=== PATIENT | female | born 1990 | race Caucasian/White ===

== ENCOUNTER 2016-10-26 10:57 | Emergency (ER) | payer OTHER ==
--- NOTE | 2016-10-26 12:10 | ED ---
General Adult HPI - General Chief complaint: Abdominal Pain Stated complaint: Cramping/12 wks Time Seen by Provider: 10/26/16 11:10 Source: patient, RN notes reviewed Mode of arrival: ambulatory Limitations: no limitations - History of Present Illness Initial comments: This is a 26-year-old female who presents to the emergency department stating she is 12 weeks . Patient states she's had no follow-up with [facility]. Patient states she comes in today because she is having some lower abdominal cramping. Patient denies any vaginal bleeding. Patient denies any dysuria hematuria or urinary frequency. Patient states the cramping sometimes is pretty significant. Patient states currently is not that bad. Patient denies any nausea vomiting or diarrhea. Patient states she's been 5 times and has 3 children. Patient denies any fever or chills. Patient denies any back pain. Patient denies any upper abdominal pain. Patient denies any difficulty breathing or shortness of breath. - Related Data Home Medications Medication Instructions Recorded Confirmed No Known Home Medications [No 10/26/16 10/26/16 Known Home Medications] Allergies Allergy/AdvReac Type Severity Reaction Status Date / Time codeine Allergy Unknown Verified 10/26/16 12:00 Childhood Penicillins Allergy Unknown Verified 10/26/16 12:00 Childhood Review of Systems ROS Statement: Those systems with pertinent positive or pertinent negative responses have been documented in the HPI. ROS Other: All systems not noted in ROS Statement are negative. Past Medical History Past Medical History: No Reported History History of Any Multi-Drug Resistant Organisms: None Reported Additional Past Surgical History / Comment(s): cervical ca Past Psychological History: Depression Smoking Status: Current every day smoker Past Alcohol Use History: None Reported Past Drug Use History: None Reported General Exam - General Exam Comments Initial Comments: GENERAL: Patient is well-developed and well-nourished. Patient is nontoxic and well- hydrated and is in no acute distress. Patient was playing on her phone throughout my interview ENT: Neck is soft and supple. No significant lymphadenopathy is noted. Oropharynx is clear. Moist mucous membranes. Neck has full range of motion without eliciting any pain. EYES: The sclera were anicteric and conjunctiva were pink and moist. Extraocular movements were intact and pupils were equal round and reactive to light. Eyelids were unremarkable. PULMONARY: Unlabored respirations. Good breath sounds bilaterally. No audible rales rhonchi or wheezing was noted. CARDIOVASCULAR: There is a regular rate and rhythm without any murmurs gallops or rubs. ABDOMEN: Soft and nontender with normal bowel sounds. No palpable organomegaly was noted. There is no palpable pulsatile mass. SKIN: Skin is clear with no lesions or rashes and otherwise unremarkable. NEUROLOGIC: Patient is alert and oriented x3. Cranial nerves II through XII are grossly intact. Motor and sensory are also intact. Normal speech, volume and content. Symmetrical smile. MUSCULOSKELETAL: Normal extremities with adequate strength and full range of motion. LYMPHATICS: No significant lymphadenopathy is noted PSYCHIATRIC: Normal psychiatric evaluation. Limitations: no limitations Course Vital Signs 10/26/16 10/26/16 11:07 13:53 Temperature 98.3 F 98.8 F Pulse Rate 72 78 Respiratory 18 16 Rate Blood Pressure 98/53 107/58 O2 Sat by Pulse 100 97 Oximetry Medical Decision Making - Medical Decision Making Ultrasound showed a viable 13 week . She states she's following up with her OB on morning. - Lab Data Lab Results 10/26/16 10/26/16 Range/Units 12:18 12:25 Urine Color Yellow Urine Appearance Cloudy H (Clear) Urine pH 7.0 (5.0-8.0) Ur Specific [place] 1.020 (1.001-1.035) Urine Protein Trace H (Negative) Urine Glucose (UA) Negative (Negative) Urine Ketones 4+ H (Negative) Urine Blood Negative (Negative) Urine Nitrate Negative (Negative) Urine Bilirubin Negative (Negative) Urine Urobilinogen 3.0 (<2.0) mg/dL Ur Leukocyte Esterase Moderate H (Negative) Urine RBC 3 (0-5) /hpf Urine WBC 8 H (0-5) /hpf Ur Squamous Epith Cells 8 H (0-4) /hpf Urine Mucus Few H (None) /hpf Trichomonas Ag (Rapid) Negative (Negative) Disposition Clinical Impression: Intrauterine Disposition: HOME SELF-CARE Condition: Good Instructions: (ED) Additional Instructions: Patient should follow-up with her [facility] on . Return to the emergency department if there are any new or worsening symptoms Referrals: Daron Mackay DO [Primary Care Provider] - 1-2 days Time of Disposition: 13:55
[2016-10-26 12:28] LABS: Appearance,Urine Cloudy (Clear); Bilirubin,Urine Negative (Negative); Glucose,Urine (UA) Negative (Negative); Ketones,Urine 4+ (Negative); Leukocyte Esterase,Urine Moderate (Negative); Mucus,Urine Few /hpf; Nitrite,Urine Negative (Negative); Particle Count 12585; Protein,Urine Trace (Negative); RBC,Urine 3 /hpf (0-5); Squamous Epithelial Cell,Urine 8 /hpf (0-4); UA Billing (MACRO vs. MICRO) MICRO; WBC,Urine 8 /hpf (0-5)
--- NOTE | 2016-10-26 13:30 | US ---
EXAMINATION TYPE: US OB <= 14 wk fetus DATE OF EXAM: 10/26/2016 1:13 PM COMPARISON: NONE CLINICAL HISTORY: Low abdominal pain. EXAM PERFORMED: OB <14 weeks EXAM MEASUREMENTS: GESTATIONAL AGE / DATING Physician Established: Not established Dates by LMP: (13 weeks/3 days) EDC: 04/30/17 Dates by First Scan: No previous Dates by Current Scan (13 weeks/6 days) EDC: 04/27/2017 MATERNAL ANATOMY Uterus: 13.2 x 9.7 x 8.6 cm Right Ovary: 4.0 x 2.9 x 2.5 cm Left Ovary: 2.8 x 2.1 x 1.8 cm Post CDS / Adnexa: wnl Presence of free fluid: no Presence of corpus luteal cyst: right side, 1.6 x 1.6 x 1.3 cm Presence of subchorionic bleed: no GESTATION / SURVEY CRL: 7.2 cm (13 weeks/3 days) Heart Rate: 144 bpm Rhythm: normal IUP: Viable IUP Date of LMP: IMPRESSION: viable 13+ week IUP, Right sided cyst
[2016-10-26 13:54] VITALS: BP 107/58; PULSE 78; RESP 16; TEMP 98.8
== END 2016-10-26 14:08 | disposition home or self-care (01) ==
LOC: EC 10:57
DX: O26.891 Other specified pregnancy related conditions, first trimester (principal); Z3A.13 13 weeks gestation of pregnancy; R10.9 Unspecified abdominal pain; Z88.5 Allergy status to narcotic agent; Z88.0 Allergy status to penicillin; O99.331 Smoking (tobacco) complicating pregnancy, first trimester
CPT/HCPCS: 76801; 81001; 87491; 87591; 87808; 99284

== ENCOUNTER 2019-11-01 21:35 | Emergency (ER) | payer OTHER ==
[2019-11-01 21:46] VITALS: BP 128/63; PULSE 99; RESP 20; TEMP 97.5
[2019-11-01] MEDS ORDERED: IBUPROFEN 600 MG TAB PO STA (22:23)
[2019-11-01 22:43] LABS: Appearance,Urine Clear (Clear); Bilirubin,Urine Negative (Negative); Blood,Urine Negative (Negative); Color,Urine Yellow; Glucose,Urine (UA) Negative (Negative); Ketones,Urine Negative (Negative); Leukocyte Esterase,Urine Negative (Negative); Nitrite,Urine Negative (Negative); PH, Urine 6.5 (5.0-8.0); Protein,Urine Trace (Negative); Specific Gravity,Urine 1.024 (1.001-1.035)
--- NOTE | 2019-11-01 23:09 | ED ---
Abdominal Pain HPI - General Chief Complaint: Abdominal Pain Stated Complaint: lower abd pain Time Seen by Provider: 11/01/19 21:56 Source: patient Mode of arrival: ambulatory Limitations: no limitations - History of Present Illness Initial Comments: Patient is a 29-year-old female presenting to emergency Department with lower abdominal pain that started this morning. Patient describes the pain as all suprapubic and associated mild nausea. She denies any recent fever, vomiting, diarrhea. She does have an IUD in place for 3 years. She denies any abdominal surgeries. She's been having normal bowel or bladder movements. No urinary symptoms or vaginal discharge. She has no other complaints at this time. He has no other significant past medical history. Upon arrival to ER, vital signs are stable. - Related Data Home Medications Medication Instructions Recorded Confirmed No Known Home Medications 10/26/16 10/26/16 Allergies Allergy/AdvReac Type Severity Reaction Status Date / Time codeine Allergy Unknown Verified 11/01/19 21:46 Childhood Penicillins Allergy Unknown Verified 11/01/19 21:46 Childhood Review of Systems ROS Statement: Those systems with pertinent positive or pertinent negative responses have been documented in the HPI. ROS Other: All systems not noted in ROS Statement are negative. Past Medical History Past Medical History: No Reported History History of Any Multi-Drug Resistant Organisms: None Reported Additional Past Surgical History / Comment(s): cervical ca Past Psychological History: Depression Smoking Status: Current every day smoker Past Alcohol Use History: None Reported Past Drug Use History: None Reported General Exam - General Exam Comments Initial Comments: GENERAL: A she looks well, in mild distress holding suprapubic area. HEAD: Atraumatic, normocephalic. EYES: Pupils equal round and reactive to light, extraocular movements intact, sclera anicteric, conjunctiva are normal. ENT: TMs normal, nares patent, oropharynx clear without exudates. Moist mucous membranes. NECK: Normal range of motion, supple without lymphadenopathy or JVD. LUNGS: Breath sounds clear to auscultation bilaterally and equal. No wheezes rales or rhonchi. HEART: Regular rate and rhythm without murmurs, rubs or gallops. ABDOMEN: Tender to palpation in the suprapubic and right and left lower quadrant. Soft, normoactive bowel sounds. No guarding, no rebound. No masses appreciated. EXTREMITIES: Normal range of motion, no pitting or edema. No clubbing or cyanosis. NEUROLOGICAL: Normal speech, normal gait. PSYCH: Normal mood, normal affect. SKIN: Warm, Dry, normal turgor, no rashes or lesions noted. Limitations: no limitations External exam: Present: normal external exam Speculum exam: Present: normal speculum exam. Absent: vaginal discharge, cervical discharge, vaginal bleeding, foreign body By manual exam: Present: normal by manual exam Course Vital Signs 11/01/19 21:44 Temperature 97.5 F L Pulse Rate 99 Respiratory 20 Rate Blood Pressure 128/63 O2 Sat by Pulse 97 Oximetry Medical Decision Making - Medical Decision Making Patient is a 29-year-old female presenting with suprapubic tenderness sister this morning. No fever, nausea, vomiting, diarrhea. Patient does have an IUD in place. Urine is normal, she is not . Ultrasound is normal, no signs of ovarian torsion or other abnormalities. IUD looks to be in place. Discussed these findings with the patient. Patient was given Motrin reports improvement in her symptoms. Patient will follow-up with [facility] . Patient is in agreement with this plan of care. Return parameters were discussed with the patient she verbalized understanding. - Lab Data Lab Results 11/01/19 11/01/19 11/01/19 Range/Units 22:27 22:27 22:48 Urine Color Yellow Urine Appearance Clear (Clear) Urine pH 6.5 (5.0-8.0) Ur Specific [place] 1.024 (1.001-1.035) Urine Protein Trace H (Negative) Urine Glucose (UA) Negative (Negative) Urine Ketones Negative (Negative) Urine Blood Negative (Negative) Urine Nitrite Negative (Negative) Urine Bilirubin Negative (Negative) Urine Urobilinogen 3.0 (<2.0) mg/dL Ur Leukocyte Esterase Negative (Negative) Urine HCG, Qual Not Detected (Not Detectd) Trichomonas Ag (Rapid) Negative (Negative) Disposition Clinical Impression: Suprapubic abdominal pain Disposition: HOME SELF-CARE Condition: Stable Instructions (If sedation given, give patient instructions): Abdominal Pain (ED) Additional Instructions: Please return to the Emergency Department if symptoms worsen or any other concerns. With [facility] as discussed. Continue with Motrin as needed for discomfort. Is patient prescribed a controlled substance at d/c from ED?: No Referrals: Daron Mackay DO [Primary Care Provider] - 1-2 days
--- NOTE | 2019-11-01 23:45 | US ---
EXAMINATION TYPE: US transvaginal DATE OF EXAM: 11/01/2019 COMPARISON: US CLINICAL HISTORY: Suprapubic severe pain. Suprapubic pain x 1 day. Hx cervical cancer and biopsy on c ervix. . Patient has IUD in place. TECHNIQUE: Transvaginal (TV). Date of LMP: Unknown EXAM MEASUREMENTS: Uterus: 8.8 x 5.4 x 3.8 cm Endometrial Stripe: 0.48 cm Right Ovary: 3.1 x 2.0 x 1.9 cm Left Ovary: 3.3 x 2.8 x 2.5 cm 1. Uterus: Anteverted IUD appears to be within the upper endometrium. 2. Endometrium: Appears to be wnl. 3. Right Ovary: Multiple subcentimeter anechoic areas seen. 4. Left Ovary: Multiple subcentimeter anechoic areas seen. Spectral, color and waveform doppler imaging shows arterial and venous flow within the left ovary. Arterial waveform is seen in the right ovary. Limited venous waveform. Unable to definitely demonstra te venous waveform. 5. Bilateral Adnexa: Appear to be wnl 6. Posterior cul-de-sac: Fluid is seen. IMPRESSION: No evidence of ovarian torsion. IUD is in good position in the uterine fundus. Normal uterus and endo metrium. No adnexal mass. There is small amount of free fluid in the cul-de-sac that could be physiol ogic. No evidence of ovarian torsion.
[2019-11-02 16:37] LABS: C. trachomatis,PCR Negative (Neg,Equiv); Chlamydia trachomatis Source Cervix
[2019-11-02 16:54] LABS: N. gonorrhoeae,PCR Negative (Neg,Equiv); Neisseria Source Cervix
== END 2019-11-02 00:03 | disposition home or self-care (01) ==
LOC: EC 21:35
DX: R10.30 Lower abdominal pain, unspecified (principal); R11.0 Nausea; F17.200 Nicotine dependence, unspecified, uncomplicated; Z88.0 Allergy status to penicillin; Z88.5 Allergy status to narcotic agent; Z97.5 Presence of (intrauterine) contraceptive device; Z85.41 Personal history of malignant neoplasm of cervix uteri; Z98.890 Other specified postprocedural states
CPT/HCPCS: 76830; 81003; 81025; 87070; 87491; 87591; 87808; 93975; 99284

== ENCOUNTER → 2021-01-26 | Outpatient (CLI) | payer OTHER ==
--- NOTE | 2021-01-26 16:18 | US ---
EXAMINATION TYPE: Ultrasound OB the single brachial = 14 week fetus DATE OF EXAM: 01/26/2021 3:39 PM COMPARISON: NONE CLINICAL HISTORY: 30-year-old female [id number] Confirm Date; ; Smoker EXAM PERFORMED: Transabdominal (TA) FINDINGS: EXAM MEASUREMENTS: GESTATIONAL AGE / DATING Physician Established: Not yet established Dates by LMP: (11 weeks/0 days) EDC: 08/17/2021 Dates by First Scan: No previous. Dates by Current Scan for: (12 weeks/4 days) EDC: 08/06/2021 MATERNAL ANATOMY Uterus: 11.7 x 8.6 x 7.9 cm Right Ovary: 3.4 x 1.9 x 1.9cm Left Ovary: 2.6 x 2.0 x 1.5cm Post CDS / Adnexa: wnl Presence of free fluid: no Presence of corpus luteal cyst: Not seen; placenta noted Presence of subchorionic bleed: no GESTATION / SURVEY CRL: 5.9cm (12 weeks/4 days) Yolk Sac (normal less than 6mm): not seen Heart Rate: 169 bpm, upper limits of normal Rhythm: Normal IUP: Single live IUP Nuchal Translucency 10-14wks (normal less than 3mm): 1.4mm Age Appropriate Anatomy Limbs: bilateral arms and legs seen with limited detail Calvarium: visualized Date of LMP: 11/10/2020 Beta HcG (if available): NA Program Coordinator Executive Education notes: Single, live IUP, 12 weeks/4 days, EDC: 08/06/2021; HR 169bpm. IMPRESSION: 1. Single live uterine with estimated gestational age of 11 weeks 0 days bilaterally. Curre nt ultrasound biometry is larger at 12 weeks 4 days. Correlate as to accuracy of recall of LMP. 2. Complete survey recommended at 18-20 weeks. Additional short interval follow-up can be consi dered given heart rate at the upper limits of normal at 169 BPM.
== END | disposition home or self-care (01) ==
LOC: RADUSWWP 15:11
PROVIDERS: ATTEND Obstetrics & Gynecology
DX: Z36.89 Encounter for other specified antenatal screening (principal); O99.331 Smoking (tobacco) complicating pregnancy, first trimester; Z3A.12 12 weeks gestation of pregnancy
CPT/HCPCS: 76801

== ENCOUNTER 2021-07-29 21:32 | Outpatient (CLI) | payer OTHER ==
[2021-07-29 23:58] VITALS: BP 121/82; PULSE 105; RESP 18; TEMP 96.8
--- NOTE | 2021-08-01 12:49 | P.MSEPDOC ---
Presenting Problems - Arrival Data Date of Arrival on Unit: 07/29/21 Time of Arrival on Unit: 21:32 Mode of Transport: Ambulatory - Complaint OB-Reason for Admission/Chief Complaint: Possible Onset of Labor Comment: Patient arrives to triage with complaints of contractions every 5-10 minutes,since 14:30 this afternoon. Patient also states she feels fluid leaking. amnisure negative Medical History - Information : 5 Para: 4 Term: 1 : 3 Abortions: Spontaneous or Elective: 0 Number of Living Children: 4 - Gestational Age Gestational Age by WENDY (wks/days): 37 Weeks and 3 Days Review of Systems - Review of Systems Constitutional: No problems Breast: No problems ENT: No problems Cardiovascular: No problems Respiratory: No problems Gastrointestinal: No problems Genitourinary: No problems Musculoskeletal: No problems Neurological: No problems Skin: No problems Vital Signs - Temperature Temperature: 96.8 F Temperature Source: Temporal Artery Scan - Pulse Pulse Oximetery Pulse Rate: 105 Pulse Assessment Method: Automatic Cuff - Respirations Respiratory Rate: 18 Oxygen Delivery Method: Room Air - Blood Pressure Right Arm Blood Pressure: 121/82 Blood Pressure Mean: 95 Blood Pressure Source: Automatic Cuff Medical Screen Scoring - Cervical Exam Dilation (cm): 1 Effacement (%): 50 Station: -3 Membranes: Intact - Uterine Contractions Frequency From (mins): 3 Frequency To (mins): 6 Duration From (seconds): 40 Duration To (seconds): 100 Intensity: Moderate Resting: Soft to palpation - Assessment - Baby A Baseline FHR: 135 Heart Rate - NICHD Category: Category I (Normal) NST: Reactive Physician Notification - Physician Notified Physician Notified Date: 07/29/21 Physician Notified Time: 22:56 Physician: Janice Lindsey Order Received: Yes - Notification Comment Comment: no cervical change after 2 hours, orders to discharge patient home. Maternal Triage Index - Maternal Triage Index Presenting for scheduled procedure w/no complaint: No - Stat/Priority 1 Stat Priority 1: No - Urgent/Priority 2 Urgent Priority 2: No - Prompt/Priority 3 Prompt Priority 3: Yes Criteria Met for Priority 3: Patient arrives to triage with complaints of contractions every 5-10 minutes,since 14:30 this afternoon. Patient also states she feels fluid leaking. amnisure negative no cervical change after 2 hours Disposition - Disposition OB Disposition: Discharge to home Discharge Date: 07/29/21 Discharge Time: 23:53 I agree with the RN Medical Screening Exam: Yes Case reviewed; plan agreed upon as documented in EMR&OBIX.: Yes Diagnosis: FALSE LABOR AT OR AFTER 37 COMPLETED WEEKS OF GESTATION
== END 2021-07-29 23:53 | disposition home or self-care (01) ==
LOC: FBPOP 21:32
PROVIDERS: ATTEND Obstetrics & Gynecology
DX: O47.1 False labor at or after 37 completed weeks of gestation (principal); Z3A.37 37 weeks gestation of pregnancy
CPT/HCPCS: 59025; 84112; G0463; 99213

== ENCOUNTER 2021-07-30 19:26 | Outpatient (CLI) | payer OTHER ==
[2021-07-30 21:20] VITALS: BP 123/88; PULSE 118; RESP 16; TEMP 97.7
--- NOTE | 2021-07-31 06:44 | P.MSEPDOC ---
Presenting Problems - Arrival Data Date of Arrival on Unit: 07/30/21 Time of Arrival on Unit: 19:26 Mode of Transport: Ambulatory - Complaint OB-Reason for Admission/Chief Complaint: Possible Onset of Labor Comment: patient states she has been having contractions and pressure X2 days. Medical History - Information : 6 Para: 4 Term: 4 : 0 Abortions: Spontaneous or Elective: 1 Number of Living Children: 4 - Gestational Age Gestational Age by WENDY (wks/days): 37 Weeks and 4 Days Review of Systems - Review of Systems Constitutional: No problems Breast: No problems ENT: No problems Cardiovascular: No problems Respiratory: No problems Gastrointestinal: No problems Genitourinary: No problems Musculoskeletal: No problems Neurological: No problems Skin: No problems Vital Signs - Temperature Temperature: 97.7 F Temperature Source: Oral - Pulse Pulse Oximetery Pulse Rate: 118 Pulse Assessment Method: Pulse Oximetry - Respirations Respiratory Rate: 16 Oxygen Delivery Method: Room Air O2 Sat by Pulse Oximetry: 98 - Blood Pressure Right Arm Blood Pressure: 123/88 Blood Pressure Mean: 99 Blood Pressure Source: Automatic Cuff Medical Screen Scoring - Cervical Exam Dilation (cm): 1 Effacement (%): 50 Membranes: Intact - Assessment - Baby A Baseline FHR: 150 Heart Rate - NICHD Category: Category I (Normal) NST: Reactive Physician Notification - Physician Notified Physician Notified Date: 07/30/21 Physician Notified Time: 20:57 Physician: Jason Samayoa New Order Received: Yes (d/c home and keep f/u appt with dr. campbell 08/05/21) Maternal Triage Index - Maternal Triage Index Presenting for scheduled procedure w/no complaint: No - Stat/Priority 1 Stat Priority 1: No - Urgent/Priority 2 Urgent Priority 2: No - Prompt/Priority 3 Prompt Priority 3: No - Non-Urgent/Priority 4 Non-Urgent Priority 4: Yes Criteria Met for Priority 4: patient complaining of contractions that are irregular but painful Disposition - Disposition OB Disposition: Discharge to home Discharge Date: 07/30/21 Discharge Time: 21:01 I agree with the RN Medical Screening Exam: Yes Case reviewed; plan agreed upon as documented in EMR&OBIX.: Yes Diagnosis: FALSE LABOR BEFORE 37 COMPLETED WEEKS OF GEST, THIRD TRI
== END 2021-07-30 21:01 | disposition home or self-care (01) ==
LOC: FBPOP 19:26
PROVIDERS: ATTEND Obstetrics & Gynecology
DX: O47.03 False labor before 37 completed weeks of gestation, third trimester (principal); Z3A.37 37 weeks gestation of pregnancy
CPT/HCPCS: 59025; G0463; 99213

== ENCOUNTER 2021-08-06 15:21 | Inpatient (IN) | payer OTHER ==
--- NOTE | 2021-08-06 16:43 | P.HPOB ---
History of Present Illness H&P Date: 08/06/21 Chief Complaint: Intrauterine at term: Gestational hypertension: S uspected early l Patient is a 31-year-old at 38 weeks 4 days gestation who was seen in the office afternoon and had normal blood pressures in the office, but as she was soy every 6 or so minutes she was sent to labor and delivery for longer observation. Once in labor and delivery she began having elevations of her blood pressure. She said for blood pressures now over the last hour or so all in the 150/90 range. Pre-clamped labs have been ordered and she has been admitted to the hospital. Due to repetitive blood pressure issues we will plan induction of labor or tonight. She has had her last 2-3 weeks abdominal pain and discomfort and thought she might be in labor on at least 1-2 other occasions but has not come into labor and delivery and is only call the office whenhave evidence of happen. This evening due to her elevated blood pressure we will plan delivery. She was dilated to 2 cm in my office approximately 2 hours ago and she is now 2-1/2-3. No other significant problems with the . She did have dizziness and syncopal episodes 20 week area but that did not follow up with cardiology as instructed area pertinent labs do include B+ blood type she did have chlamydia early in the but was treated and had negative culture done. Her rubella is immune, hepatitis B surface antigen and RPR as well as HIV were negative. Group B strep was also negative. Past Medical History Past Medical History: No Reported History History of Any Multi-Drug Resistant Organisms: None Reported Additional Past Surgical History / Comment(s): cervical ca Smoking Status: Current some day smoker Medications and Allergies Home Medications Medication Instructions Recorded Confirmed Type Pnv No.95/Ferrous Fum/Folic AC 1 tab PO DAILY 07/29/21 08/06/21 History [ Multivitamin Tablet] Allergies Allergy/AdvReac Type Severity Reaction Status Date / Time codeine Allergy Unknown Verified 08/06/21 15:30 Childhood Penicillins Allergy Unknown Verified 08/06/21 15:30 Childhood Exam Osteopathic Statement: *. No significant issues noted on an osteopathic structural exam other than those noted in the History and Physical/Consult. Intake and Output 08/06/21 08/06/21 08/06/21 06:59 14:59 22:59 Other: Weight 81.647 kg - OBG Physical Exam Breast: both: normal (no masses) Abdomen: bowel sounds normal, no diffuse tenderness, no bruit present, no guarding noted, no hepatomegaly, no splenomegaly, no mass Vulva: both: normal Vagina: normal moisture, no discharge Cervix: no lesion, no discharge Uterus: normal size, normal contour Adnexa: both: normal Anus/Rectum: normal perianal skin, no rectal mass, no hemorrhoids, heme negative
[2021-08-06 16:57] LABS: Appearance,Urine Cloudy (Clear); Bacteria,Urine Rare /hpf; Bilirubin,Urine Negative (Negative); Blood,Urine Negative (Negative); Color,Urine Yellow; Glucose,Urine (UA) Negative (Negative); Ketones,Urine Negative (Negative); Leukocyte Esterase,Urine Negative (Negative); Mucus,Urine Many /hpf; Nitrite,Urine Negative (Negative); Protein,Urine 1+ (Negative); RBC,Urine <1 /hpf (0-5); Specific Gravity,Urine 1.017 (1.001-1.035); Squamous Epithelial Cell,Urine 6 /hpf (0-4); Urobilinogen,Urine <2.0 mg/dL (<2.0); WBC,Urine 4 /hpf (0-5)
[2021-08-06 17:09] LABS: Creatinine,Urine Random 131.9 mg/dL; Creatinine,Urine Random 132.5 mg/dL; Protein/Creatinine Ratio,Urine 0.25
[2021-08-06] MEDS ORDERED: METHYLERGONOVINE 0.2 MG/ML 1 ML AMP IM PRN (17:13)
[2021-08-06] MEDS ORDERED: OXYTOCIN 10 UNIT/ML 1 ML VIAL IM PRN (17:13)
[2021-08-06] MEDS ORDERED: TERBUTALINE 1 MG/ML VIAL SQ PRN (17:13)
[2021-08-06] MEDS ORDERED: LIDOCAINE 0.5% (PF) 5 MG/ML (50 ML SDV) SQ PRN (17:13)
[2021-08-06] MEDS ORDERED: CARBOPROST TROMETHAMINE 250 MCG/ML 1 ML AMP IM PRN (17:13)
[2021-08-06] MEDS ORDERED: OXYTOCIN 30 UNITS/500 ML NS 30 UNIT in SALINE 1 500ML.BAG IV SCH ×2 (17:15→22:28)
[2021-08-06] MEDS: LACTATED RINGERS 1,000 ML IV SCH ×2 (17:15→19:15)
[2021-08-06 17:26] LABS: Basophils % (A) 0 %; Eosinophils # (A) 0.1 k/uL (0-0.7); Eosinophils % (A) 1 %; HCT 27.1 % (34.0-46.0); HGB 8.8 gm/dL (11.4-16.0); Hypochromasia Slight; Lymphocytes # (A) 1.4 k/uL (1.0-4.8); Lymphocytes % (A) 16 %; MCH 27.1 pg (25.0-35.0); MCHC 32.3 g/dL (31.0-37.0); MCV 83.9 fL (80.0-100.0); Mean Platelet Volume 8.7; Monocytes # (A) 0.4 k/uL (0-1.0); Monocytes % (A) 4 %; Neutrophils # (A) 6.4 k/uL (1.3-7.7); Neutrophils % (A) 76 %; Platelet Count 174 k/uL (150-450); Poikilocytosis Slight; RBC 3.23 m/uL (3.80-5.40); RDW 14.2 % (11.5-15.5); WBC 8.4 k/uL (3.8-10.6)
[2021-08-06 17:37] LABS: ALT 9 U/L (4-34); AST 17 U/L (14-36); African American GFR (CKD) >90 (>60 ml/min/1.73 sqM); Blood Urea Nitrogen 8 mg/dL (7-17); LDH 362 U/L (313-618); Non-African American GFR(CKD) >90 (>60 ml/min/1.73 sqM); Uric Acid 3.4 mg/dL (3.7-7.4)
[2021-08-06] MEDS ORDERED: SODIUM CHLORIDE 0.9% 100 ML BAG ONE (18:49)
[2021-08-06] MEDS ORDERED: fentaNYL (PF) 50 MCG/ML 5 ML AMP ONE (18:49)
[2021-08-06] MEDS ORDERED: ROPIVACAINE 5MG/ML 20ML VIAL ONE (18:49)
--- NOTE | 2021-08-06 22:15 | P.PROBDLV ---
Vaginal Delivery Note - . Vaginal Delivery Note: The patient progressed to complete dilation after oxytocin induction of labor and artificial rupture membranes with clear fluid noted. She did receive epidural anesthesia. Once reaching complete dilation, she began pushing. Infant's head came to a crown fairly rapidly. With one further push, the infant's head delivered across the perineum followed by the anterior shoulder. Nose and mouth and were bulb suctioned at the perineum. The remainder the infant easily delivered and was placed on mother's abdomen. Cord was clamped and cut and was taken to warmer for evaluation. A viable female infant was noted with scores of 8 at 1 minute and 9 at 5 minutes and infant weight of 7 lbs. 2 oz. Placenta delivered shortly thereafter, intact, with a three-vessel cord. Uterus contracted well after oxytocin was given and uterine massage was carried out. Inspection of the perineum revealed a right periurethral laceration. This area was anesthetized with 1% lidocaine and sutured with 3-0 Vicryl suture in the running locked fashion. Estimated blood loss was approximately 150 mL's. Both mother and are in stable condition.
[2021-08-06] MEDS ORDERED: diphenhydrAMINE 25 MG CAP PO PRN (22:28)
[2021-08-06] MEDS ORDERED: ZOLPIDEM 5 MG TAB PO PRN (22:28)
[2021-08-06] MEDS ORDERED: HYDROCORTISONE 2.5% RECTAL CREAM 30 GM TUBE RECTAL PRN (22:28)
[2021-08-06] MEDS ORDERED: BENZOCAINE/MENTHOL SPRAY 1 GM/SPRAY AEROSOL TOPICAL PRN (22:28)
[2021-08-06] MEDS ORDERED: LANOLIN CREAM 5 GM TUBE TOPICAL PRN (22:28)
[2021-08-06] MEDS ORDERED: diphenhydrAMINE 50 MG CAP PO PRN (22:28)
[2021-08-06] MEDS ORDERED: SIMETHICONE 80 MG CHEWABLE PO PRN (22:28)
[2021-08-06] MEDS ORDERED: diphenhydrAMINE 50 MG/ML 1 ML VIAL IVP PRN ×2 (22:28)
[2021-08-07] MEDS: IBUPROFEN 600 MG TAB PO PRN ×4 (00:19→23:39)
[2021-08-07 06:57] LABS: Basophils % (A) 0 %; Eosinophils # (A) 0.1 k/uL (0-0.7); Eosinophils % (A) 1 %; HCT 23.8 % (34.0-46.0); Lymphocytes # (A) 1.5 k/uL (1.0-4.8); Lymphocytes % (A) 16 %; MCH 27.4 pg (25.0-35.0); MCHC 33.8 g/dL (31.0-37.0); MCV 81.2 fL (80.0-100.0); Mean Platelet Volume 8.6; Monocytes # (A) 0.4 k/uL (0-1.0); Monocytes % (A) 4 %; Neutrophils # (A) 7.2 k/uL (1.3-7.7); Neutrophils % (A) 78 %; Platelet Count 178 k/uL (150-450); Poikilocytosis Slight; RBC 2.93 m/uL (3.80-5.40); RDW 14.5 % (11.5-15.5); WBC 9.2 k/uL (3.8-10.6)
[2021-08-07] MEDS: SENNOSIDES-DOCUSATE SODIUM 1 EACH TAB PO SCH ×2 (08:03→19:35)
--- NOTE | 2021-08-07 08:58 | P.PNOBGVD ---
Subjective - Subjective Principal diagnosis: day 1 Interval history: Patient is doing very well this morning. Her blood pressures all improved and has had no elevated blood pressures since delivery. We'll continue care through today and likely discharge home tomorrow. All questions are answered for her at this time. She is involuting, voiding and she is tolerating her diet. Objective - Latest Vital Signs Latest vital signs: Vital Signs Temp Pulse Resp BP Pulse Ox 08/07/21 08:00 97.9 F 74 18 129/79 08/07/21 04:00 97.7 F 81 16 114/66 96 08/07/21 00:15 98.4 F 91 18 106/57 96 08/06/21 23:45 59 L 18 112/57 08/06/21 23:15 85 18 120/76 08/06/21 23:00 83 16 128/77 08/06/21 22:45 85 16 132/85 08/06/21 22:30 88 16 130/82 08/06/21 22:15 98.6 F 90 14 124/80 08/06/21 17:00 98.0 F 98 16 152/91 08/06/21 15:29 96.4 F L 100 16 149/81 98 Intake and Output 08/06/21 08/07/21 08/07/21 22:59 06:59 14:59 Intake Total 171.733 Output Total 150 Balance 21.733 Intake: Intake, IV Titration 171.733 Amount Oxytocin 30 Units/500 ml 171.733 Ns 30 unit In Saline 1 500ml.bag @ Per Protocol IV .Q0M [facility] Rx#:[id number] Output: Estimated Blood Loss 150 Other: # Voids 1 Weight 81.647 kg - Exam Lungs: bilateral: normal Chest: Normal S1, Normal S2 Extremities: Present: normal Abdomen: Present: normal appearance, soft Uterus: Present: normal, firm - Labs Labs: Abnormal Lab Results - Last 24 Hours (Table) 08/06/21 08/06/21 08/06/21 Range/Units 16:30 16:30 17:17 RBC (3.80-5.40) m/uL Hgb (11.4-16.0) gm/dL Hct (34.0-46.0) % Creatinine 0.39 L (0.52-1.04) mg/dL Uric Acid 3.4 L (3.7-7.4) mg/dL Urine Appearance Cloudy H (Clear) Urine Protein 1+ H (Negative) Ur Squamous Epith Cells 6 H (0-4) /hpf Urine Bacteria Rare H (None) /hpf Urine Mucus Many H (None) /hpf U Random Total Protein 34 H (<12) mg/dL 08/06/21 08/07/21 Range/Units 17:17 06:34 RBC 3.23 L 2.93 L (3.80-5.40) m/uL Hgb 8.8 L 8.0 L (11.4-16.0) gm/dL Hct 27.1 L 23.8 L (34.0-46.0) % Creatinine (0.52-1.04) mg/dL Uric Acid (3.7-7.4) mg/dL Urine Appearance (Clear) Urine Protein (Negative) Ur Squamous Epith Cells (0-4) /hpf Urine Bacteria (None) /hpf Urine Mucus (None) /hpf U Random Total Protein (<12) mg/dL
[2021-08-07] MEDS ORDERED: PRENATAL VIT-IRON-FOLIC ACID 1 EACH CAP PO SCH (09:00)
[2021-08-07] MEDS: ACETAMINOPHEN TAB 325 MG TAB PO PRN ×2 (14:11→19:35)
[2021-08-07 20:18] VITALS: RESP 16
[2021-08-08] MEDS: IBUPROFEN 600 MG TAB PO PRN (09:11)
--- NOTE | 2021-08-08 09:40 | P.DS ---
Providers Date of admission: 08/06/21 16:34 Expected date of discharge: 08/08/21 Attending physician: Emerson Simons Primary care physician: Stated None - Discharge Diagnosis(es) (1) Gestational hypertension Current Visit: Yes Status: Acute (2) Normal vaginal delivery Current Visit: Yes Status: Acute Hospital Course: Patient presented for induction of labor due to gestational hypertension. She underwent induction and normal vaginal delivery. course was uncomplicated. She denies nausea, vomiting, chest pain, shortness of breath calf pain headache or dizziness. She will be discharged home day #2 in stable condition to follow-up with Dr. Urrutia in 6 weeks. Plan - Discharge Summary New Discharge Prescriptions: New Ibuprofen [Motrin] 600 mg PO Q6HR PRN #30 tab PRN Reason: Pain No Action Pnv No.95/Ferrous Fum/Folic AC [ Multivitamin Tablet] 1 tab PO DAILY Discharge Medication List Pnv No.95/Ferrous Fum/Folic AC [ Multivitamin Tablet] 1 tab PO DAILY 07/29/21 [History] Ibuprofen [Motrin] 600 mg PO Q6HR PRN #30 tab 08/07/21 [Rx] Follow up Appointment(s)/Referral(s): Emerson Simons DO [Doctor of Osteopathic Medicine] - 6 Weeks Activity/Diet/Wound Care/Special Instructions: No heavy lifting, limit stairs and driving, and pelvic rest. If any high temperatures, heavy bleeding, or severe pain call my office. Discharge Disposition: HOME SELF-CARE
[2021-08-08 09:42] VITALS: BP 135/86; PULSE 99; TEMP 98.6
[2021-08-08] MEDS: SENNOSIDES-DOCUSATE SODIUM 1 EACH TAB PO SCH (10:30)
== END 2021-08-08 13:14 | disposition home or self-care (01) | DRG 807 ==
LOC: FBPOP 15:21 → 4FBP 16:34
PROVIDERS: ADMIT Obstetrics & Gynecology; ATTEND Obstetrics & Gynecology
PROC: 10E0XZZ Delivery of Products of Conception, External Approach (ICD-10-PCS; principal; 2021-08-06)
PROC: 10907ZC Drainage of Amniotic Fluid, Therapeutic from Products of Conception, Via Natural or Artificial Opening (ICD-10-PCS; 2021-08-06)
PROC: 0UQMXZZ Repair Vulva, External Approach (ICD-10-PCS; 2021-08-06)
DX: O13.4 Gestational [pregnancy-induced] hypertension without significant proteinuria, complicating childbirth (principal); Z37.0 Single live birth; O99.334 Smoking (tobacco) complicating childbirth; F17.200 Nicotine dependence, unspecified, uncomplicated; Z3A.38 38 weeks gestation of pregnancy; Z85.41 Personal history of malignant neoplasm of cervix uteri; O71.82 Other specified trauma to perineum and vulva
CPT/HCPCS: 59025; 81001; 82565; 82570; 83615; 84156; 84450; 84460; 84520; 84550; 85025; 86850; 86900; 86901; 88307; 99213

== ENCOUNTER → 2021-11-13 | Day surgery (SDC) | payer OTHER ==
[2021-11-10 14:51] VITALS: BMI 26.9
--- NOTE | 2021-11-11 15:59 | P.HPOB ---
History of Present Illness H&P Date: 11/11/21 Chief Complaint: Family planning Patient is a 31-year-old female who is completed her family and desires permanent sterilization. Description of procedure was completed fully with the patient and all questions were answered for her. She is aware this is designed to be permanent concern procedure and not designed to be reversed she is aware that there is a small risk for failure and there is a risk for potential leading, damage to bladder or bowel, vascular injuries, nerve injuries, potential need for other surgeries. All questions were answered for her prior to proceeding to the operative room. Past Medical History Past Medical History: Cancer Additional Past Medical History / Comment(s): Hx cervical cancer in 2008 or 2009. History of Any Multi-Drug Resistant Organisms: None Reported Additional Past Surgical History / Comment(s): Procedure for cervical cancer. Past Anesthesia/Blood Transfusion Reactions: No Reported Reaction Past Psychological History: ADD/ADHD, Anxiety Additional Psychological History / Comment(s): ADHD. Smoking Status: Former smoker Past Alcohol Use History: None Reported Additional Past Alcohol Use History / Comment(s): Quit smoking 1 yr ago, smoked since age 17 or 18, 1 ppd. Past Drug Use History: None Reported - Past Family History Mother History Unknown: Yes Medications and Allergies Home Medications Medication Instructions Recorded Confirmed Type No Known Home Medications 11/10/21 11/10/21 History Allergies Allergy/AdvReac Type Severity Reaction Status Date / Time codeine Allergy Unknown Verified 11/10/21 14:38 Childhood Penicillins Allergy Unknown Verified 11/10/21 14:38 Childhood Exam Osteopathic Statement: *. No significant issues noted on an osteopathic structural exam other than those noted in the History and Physical/Consult. - OBG Physical Exam Breast: both: normal (no masses) Abdomen: bowel sounds normal, no diffuse tenderness, no bruit present, no guar ding noted, no hepatomegaly, no splenomegaly, no mass Vulva: both: normal Vagina: normal moisture, no discharge Cervix: no lesion, no discharge Uterus: normal size, normal contour Adnexa: both: normal Anus/Rectum: normal perianal skin, no rectal mass, no hemorrhoids, heme negative
[~2021-11-13] MED LIST: ACETAMINOPHEN TAB 500 MG TAB ONE; ACETAMINOPHEN TAB 500 MG TAB PO ONE; BUPIVACAINE (PF) 0.25% 30 ML VIAL SQ ONE; DEXAMETHASONE SOD PHOSPHATE 4 MG/ML 1 ML VIAL IV ONE; GLYCOPYRROLATE 0.2 MG/ML 2 ML VIAL ONE; HYDROmorphone 1 MG/ML 1 ML SYRINGE ONE; KETOROLAC 15 MG/ML 1 ML VIAL IVP ONE; LACTATED RINGERS 1,000 ML IV ONE; LACTATED RINGERS 1,000 ML IV SCH; LIDOCAINE 1% INJ 10MG/ML (20 ML MDV) ONE; MIDAZOLAM 2 MG/2 ML VIAL IV PRN; NEOSTIGMINE 1 MG/ML 10 ML VIAL ONE; ONDANSETRON 4 MG/2 ML VIAL IVP ONE; PROPOFOL 10 MG/ML 20 ML VIAL IV ONE; Pre Op ABX Message 1 EACH MISC MISCELLANE ONE; ROCURONIUM 10 MG/ML (5 ML VIAL) IV ONE; SCOPOLAMINE 1.5MG/72HR PATCH TRANSDERM ONE; SUCCINYLCHOLINE CHLORIDE 100 MG/5 ML SYR IV ONE; fentaNYL (PF) 50 MCG/ML 2 ML AMP ONE
[2021-11-13 06:55] VITALS: RESP 16
--- NOTE | 2021-11-13 08:08 | P.OP ---
Date of Procedure: 11/13/21 Preoperative Diagnosis: Family planning Postoperative Diagnosis: Same Procedure(s) Performed: Laps scopic tubal with Filshie clip Anesthesia: KAYCE Surgeon: Emerson Simons Estimated Blood Loss (ml): 4 IV fluids (ml): 400 Urine output (ml): 50 Pathology: none sent Condition: stable Disposition: same day Operative Findings: Normal female pelvic anatomy Description of Procedure: Patient was taken to the operating suite where general anesthetic was found be adequate. She was prepped and draped in normal sterile fashion and placed in the dorsal lithotomy position. Initially a weighted speculum was inserted in vagina and anterior lip of cervix identified and grasped with an Allis clamp. Cervix was then sounded to 8 cm and a uterine manipulator was inserted without difficulty. At this point other incidents removed and red rubber cath was used to drain bladder of urine. Once this was completed, gloves were changed and attention was turned to abdominal portion procedure. Initially 2 mL of quarter percent Marcaine was injected periumbilically and through this injected anesthetic a 5 mm skin incision was made. Through this incision, under direct visualization with an optical trocar and sleeve the camera was inserted. Once peritoneal placement was assured gas was allowed to fully and slick abdomen and patient's placement steep Trendelenburg position. Second port and sleeve were then inserted through an 8 mm skin incision again under direct visualization. Observations pelvis were noted. Normal female pelvic anatomy is noted. First the right fallopian tube was identified and grasped with a Filshie applicator and a clip was applied 2 cm lateral to uterine cornu. In similar fashion left side was clipped. No bleeding is noted through the mesosalpinx and the remainder the pelvis appears again normal. All instruments were then removed and gas was allowed to expel from the abdomen. 5 deep breaths were provided during this process. 4-0 Vicryl was then used to close incision subcuticularly and the remaining 8 mL of quarter percent Marcaine was injected around these incisions. Incidents were then removed from the vagina. It is noted that she does have blood coming from the uterine manipulator likely due to her starting her menses. No evidence of tear or lacerations noted and the device went in without any, patient or resistance. She was taken to the recovery room in stable and satisfactory condition. Plan - Discharge Summary Discharge Rx Participant: Yes New Discharge Prescriptions: New Ibuprofen [Motrin] 600 mg PO Q6HR PRN #30 tab PRN Reason: Pain Discharge Medication List Ibuprofen [Motrin] 600 mg PO Q6HR PRN #30 tab 11/13/21 [Rx] Follow up Appointment(s)/Referral(s): Emerson Simons DO [Doctor of Osteopathic Medicine] - 10 Days Activity/Diet/Wound Care/Special Instructions: No heavy lifting, limit stairs and driving, and pelvic rest. If any high temperatures, heavy bleeding, or severe pain call my office Discharge Disposition: HOME SELF-CARE
[2021-11-13] MEDS: HYDROmorphone 1 MG/ML 1 ML SYRINGE IVP PRN ×2 (08:23→08:36)
[2021-11-13 08:33] VITALS: TEMP 97
[2021-11-13 09:24] VITALS: BP 130/82; PULSE 55
== END | disposition home or self-care (01) ==
LOC: OR 06:13
PROVIDERS: ATTEND Obstetrics & Gynecology
DX: Z30.2 Encounter for sterilization (principal); Z85.41 Personal history of malignant neoplasm of cervix uteri; F90.9 Attention-deficit hyperactivity disorder, unspecified type; F41.9 Anxiety disorder, unspecified; Z87.891 Personal history of nicotine dependence; Z88.5 Allergy status to narcotic agent; Z88.0 Allergy status to penicillin
CPT/HCPCS: 81025; 58671; J1100; J2710; J2405; J2001; J3010; J1170; J1885; J0330; J2704